=== PATIENT | female | born 1975 | race Caucasian/White ===

== ENCOUNTER 2016-09-05 12:37 | Emergency (ER) | payer SELFPAY ==
[2016-09-05 12:45] VITALS: BP 152/67; PULSE 108; TEMP 98.6; BMI 34.4
[2016-09-05] MEDS ORDERED: Albuterol/Ipratropium Neb 3 ML NEB NEB ONE (13:21)
[2016-09-05] MEDS ORDERED: METHYLPREDNISOLONE 125 MG/2 ML VIAL IM ONE (13:21)
--- NOTE | 2016-09-05 14:00 | EDPRACDOC ---
- General Information Chief Complaint: Flu-Like Symptoms Stated Complaint: COUGH/ DX WITH BRONCHITIS 3-4 MONTHS AGO Time Seen by Provider: 09/05/16 13:16 Information Source: Patient Mode Of Arrival: Car Home Medications: Home Medications Albuterol Sulfate [Proair Hfa] 2 puff INH QID #1 inhaler 09/05/16 Prednisone [Deltasone, Orasone] 20 mg PO BID #20 tab 09/05/16 Allergies/Adverse Reactions: Allergies Allergy/AdvReac Type Severity Reaction Status Date / Time latex Allergy Rash-Locali Verified 09/05/16 13:20 zed - History of Present Illness Onset: 4 months HPI: PT PRESENTS WITH PERSISTENT COUGH THAT SHE STATES HAS BEEN ONGOING FOR SEVERAL MONTHS. PT STATES SHE CONTINUES TO SMOKE IN EXCESS OF 1 PACK OF CIGARETTES A DAY. STATES SHE COUGHS TO THE POINT OF VOMITING AND LOSING HER BREATH. NO FEVER , CHILLS, NAUSEA OR VOMITING. DENIES PRODUCTIVE COUGH. Current Symptoms: Reports: Cough Shortness of Breath: Mild Cough: Reports: Non-productive Rhinorrhea: Reports: Clear Ear Symptoms: Reports: None Fever Severity/Quality: Reports: no fever Oral Intake: Normal Urinary Output: Normal Relevant History of: None ED Past Medical History - History Reviewed Yes Nurses notes reviewed and agree except as marked - Patient Medical History Psychological History: Denies: Depression Surgical History: Reports: Tonsillectomy/Adnoidectomy - Social Medical History Smoking Status: Heavy tobacco smoker (5 or more cigarettes/day or daily pipe/ cigar) EDM Review of Systems - Review of Systems ROS Negative Except as Marked: Yes All systems reviewed and were negative except as marked - Physical Exam Constitutional: Alert Oriented to: Time, Person, Place Last recorded Vital Signs: Last Vital Signs Temp 98.6 F 09/05/16 12:43 Pulse 108 09/05/16 12:43 Resp 18 09/05/16 12:43 BP 152/67 09/05/16 12:43 Pulse Ox 98 09/05/16 12:43 Oxygen Pulse Oxygen Saturation 98 O2 Device Room Air Oxygen Flow Rate Fraction of Inspired Oxygen ( FIO2) - HEENT Head: Normal ( normocephalic) Eye Exam: Normal (PERRL, EOMI, Sclera white) Oropharynx: Normal (Pharynx:Moist without exudate,Gums-no swelling) Nose: No Symptoms Reported (septum midline) Neck: Normal (FROM, trachea at midline) - Respiratory/Cardiovascular Respiratory: Wheezes Cardiovascular: Tachycardia - GI Auscultation: Normal (NABS) Palpation: Normal (Soft,No rebound or guarding, non distended) Tenderness: Non tender John's Sign: Negative Rectal Exam: Deferred - Musculoskeletal Back: Normal (Non-Tender) Extremities: Normal (Normal tone, Pulses 2+ No cyanosis or edema, FROM) - Integumentary Skin: Normal, Warm, Dry Lymphatics: Normal (no adenopathy) - Neurologic Memory Impaired: Normal Motor Function: Normal (Normal tone, Pulses 2+ No cyanosis or edema, FROM) Cranial Nerve: Normal (CN II-X11 intact sensation, strength 5/5) Cerebellar: Normal Mood Description: Normal Perception: Normal - Differential Diagnosis URI, Viral Decision Time to Discharge: 14:33 - Departure Disposition: Home Condition: Stable Final Diagnosis: COPD (chronic obstructive pulmonary disease) Qualifiers: COPD type: chronic bronchitis Chronic bronchitis type: simple Qualified Code(s) : J41.0 - Simple chronic bronchitis Instructions: COPD (Chronic Obstructive Pulmonary Disease) (ED), How Your Lungs Work (ED), Cigarette Smoking and Your Health (GEN), How to Stop Smoking ( ED) Education/Counseling Given To: Patient Education/Counseling Given Regarding: Diagnosis, Treatment, Prognosis, Follow Up Referrals: Manohar Patel MD [Staff Physician] - One Week Clinton Bazan MD [Staff Physician] - One Week Prescriptions: New Albuterol Sulfate [Proair Hfa] 2 puff INH QID #1 inhaler Prednisone [Deltasone, Orasone] 20 mg PO BID #20 tab Additional Instructions: STOP SMOKING. FOLLOW UP WITH BIOCHEMISTRY TECHNICIAN. RETURN TO THE ED FOR WORSENING SYMPTOMS OR CONCERNS.
--- NOTE | 2016-09-05 14:26 | DIRPT ---
CLINICAL DATA: Chronic nonproductive cough. Smoker. EXAM: CHEST 2 VIEW COMPARISON: None. FINDINGS: The heart size and mediastinal contours are within normal limits. Both lungs are clear. The visualized skeletal structures are unremarkable. IMPRESSION: Normal exam. Electronically Signed By: Phong Leiva M.D. On: 09/05/2016 14:23
[2016-09-05] MEDS ORDERED: ALBUTEROL 6.7 GM MDI INH ONE (14:35)
== END 2016-09-05 15:04 | disposition home or self-care (01) ==
LOC: EDMC 12:37
DX: J44.9 Chronic obstructive pulmonary disease, unspecified (principal)
CPT/HCPCS: 71020; 94640; 96372; 99282; J2930; J3490; J7620